=== PATIENT | male | born 1965 | race Caucasian/White ===

== ENCOUNTER 2017-10-22 07:03 | Emergency (ER) | payer OTHER ==
[~2017-10-22 07:03] MED LIST: AMOX-559 PO; AZIT-18 PO; BENZ100C4 PO; IBUP600T22 PO; MULT-1335 PO; OMEG10007 PO; OXYC-373 PO; PRED20TA6 PO; SILV20CR2 TP
[2017-10-22] MEDS ORDERED: PROP10TA58 PO (07:11)
--- NOTE | 2017-10-22 07:27 | ER Report ---
History and Physical Time Seen By MD: 07:25 Hx. of Stated Complaint: CHEST PAIN FOR 10-15 MINUTES. HAD JUST ARRIVED TO WORK. FEELS DISORIENTED HPI/ROS CHIEF COMPLAINT: Chest pain HISTORY OF PRESENT ILLNESS: 52-year-old male presenting with chest pain with acute onset at approximately 645 this morning while typing at a computer. Patient describes a sharp stabbing pain midsternal distribution without radiation. Patient denies exacerbation of pain with deep inspiration or prior history of DVT or pulmonary embolisms. Patient does have a history of hyperlipidemia, hypertension but denies family history of cardiac problems. Patient denies fevers, chills, nausea, vomiting, dysuria, headaches, blurred vision. Patient is hemodynamically stable at time of evaluation. Initial onset of pain was approximately 8 out of 10 but has since subsided. Patient also complains of significant life stressors and moderate alcohol intake on a nightly basis. CHIEF COMPLAINT: Chest pain REVIEW OF SYSTEMS: Constitutional: [No fever, no chills.] Eyes: [No discharge.] ENT: [No sore throat.] Cardiovascular: [No chest pain, no palpitations.] Respiratory: [No cough, no shortness of breath.] Gastrointestinal: [No abdominal pain, no vomiting.] Genitourinary: [No hematuria.] Musculoskeletal: [No back pain.] Skin: [No rashes.] Neurological: [No headache.] Allergies: Coded Allergies: No Known Drug Allergies (Unverified , 10/22/17) Home Meds Reported Medications Propranolol Hcl (PROPRANOLOL HCL) 10 Mg Tablet, 10 MG PO PRN 10/22/17 Discontinued Reported Medications Benkelman-3/Dha/Epa/Fish Oil (Fish Oil 1,000 mg Softgel) 1,000 Mg (120 Mg-180 Mg) Capsule, 2 CAP PO BID 10/29/16 Multivitamin With Minerals (MULTIPLE VITAMIN) 1 Each Tablet, 1 EACH PO DAILY, TAB 10/29/16 Discontinued Scripts Azithromycin 250 Mg Tab (AZITHROMYCIN 250 MG TAB) 250 Mg Tablet, 1 TAB PO QDAY, #6 TAB Take 2 tabs today and then 1 tab a day until gone. Prov:ARTURO GRESHAM PA-C 11/06/16 Prednisone (PREDNISONE) 20 Mg Tablet, 20 MG PO BID for 5 Days, #10 TAB Prov:ARTURO GRESHAM PA-C 11/06/16 Benzonatate 100 Mg Cap (TESSALON PERLE 100 MG CAP) 100 Mg Capsule, 100 MG PO TID , #15 CAP 0 Refills Prov:ANGELES CANALES MD 10/29/16 Past Medical/Surgical History Patient has a history significant for right knee surgery, anxiety Reviewed Nurses Notes: Yes Old Medical Records Reviewed: Yes Hx Smoking: Yes Constitutional Vital Sign - Last 24 Hours 10/22/17 10/22/17 10/22/17 10/22/17 07:06 07:07 07:18 07:30 Temp 98.1 Pulse 80 71 Resp 18 16 B/P (MAP) 151/102 (118) 151/102 144/111 (122) Pulse Ox 95 93 O2 Delivery Room Air 10/22/17 10/22/17 10/22/17 10/22/17 07:33 07:38 07:53 07:58 Pulse 66 67 65 Resp 15 19 12 B/P (MAP) 133/91 (105) Pulse Ox 94 93 94 10/22/17 10/22/17 10/22/17 10/22/17 08:06 08:11 08:30 08:56 Pulse ??? 73 Resp 17 B/P (MAP) 116/77 (90) 121/83 (96) 10/22/17 10/22/17 09:00 09:11 Pulse 68 Resp 16 B/P (MAP) 97/79 (85) Physical Exam General Appearance: The patient is alert, has no immediate need for airway protection and no current signs of toxicity. No acute distress, + anxious appearing Eyes: Pupils equal and round no injection. Respiratory: Chest is non tender, lungs are clear to auscultation. Cardiac: regular rate and rhythm No murmurs or rubs Gastrointestinal: Abdomen is soft and non tender, no masses, bowel sounds normal. Musculoskeletal: Neck: Neck is supple and non tender. Extremities have full range of motion and are non tender. Skin: No rashes or lesions. DIFFERENTIAL DIAGNOSIS: After history and physical exam differential diagnosis was considered for chest pain including but not limited to myocardial ischemia, pericarditis pulmonary embolus, chest wall pain, pleural inflammation and pulmonary infectious causes. Medical Decision Making Data Points Result Diagram: 10/22/17 0710 10/22/17 0710 Laboratory Hematology Test 10/22/17 07:10 10/22/17 10:50 Red Blood Count 4.98 M/uL (4.00-5.60) Mean Corpuscular Volume 94.7 fL (80.0-96.0) Mean Corpuscular Hemoglobin 33.0 pg (26.0-33.0) Mean Corpuscular Hemoglobin Concent 34.9 g/dL (32.0-36.0) Red Cell Distribution Width 14.2 % (11.5-14.5) Mean Platelet Volume 8.7 fL (7.2-11.1) Neutrophils (%) (Auto) 61.1 % (39.4-72.5) Lymphocytes (%) (Auto) 28.2 % (17.6-49.6) Monocytes (%) (Auto) 6.3 % (4.1-12.4) Eosinophils (%) (Auto) 3.6 % (0.4-6.7) Basophils (%) (Auto) 0.8 % (0.3-1.4) Nucleated RBC Relative Count (auto) 0.0 /100WBC Neutrophils # (Auto) 2.7 K/uL (2.0-7.4) Lymphocytes # (Auto) 1.3 K/uL (1.3-3.6) Monocytes # (Auto) 0.3 K/uL (0.3-1.0) Eosinophils # (Auto) 0.2 K/uL (0.0-0.5) Basophils # (Auto) 0.0 K/uL (0.0-0.1) Nucleated RBC Absolute Count (auto) 0.00 K/uL Sodium Level 138 mmol/L (137-145) Potassium Level 4.1 mmol/L (3.5-5.0) Chloride Level 103 mmol/L (98-107) Carbon Dioxide Level 24 mmol/L (22-30) Blood Urea Nitrogen 14 mg/dl (9-21) Creatinine 1.00 mg/dl (0.66-1.25) Glomerular Filtration Rate Calc > 60.0 Random Glucose 124 mg/dl (75-110) Calcium Level 9.8 mg/dl (8.4-10.2) Total Bilirubin 0.8 mg/dl (0.2-1.3) Aspartate Amino Transf (AST/SGOT) 37 U/L (0-35) Alanine Aminotransferase (ALT/SGPT) 42 U/L (0-56) Alkaline Phosphatase 71 U/L (0-126) Total Protein 7.6 gm/dl (6.3-8.2) Albumin 4.2 g/dl (3.5-5.0) Troponin I < 0.012 ng/ml Chemistry Test 10/22/17 07:10 10/22/17 10:50 White Blood Count 4.5 k/uL (4.5-11.0) Red Blood Count 4.98 M/uL (4.00-5.60) Hemoglobin 16.4 g/dL (14.0-18.0) Hematocrit 47.1 % (42.0-52.0) Mean Corpuscular Volume 94.7 fL (80.0-96.0) Mean Corpuscular Hemoglobin 33.0 pg (26.0-33.0) Mean Corpuscular Hemoglobin Concent 34.9 g/dL (32.0-36.0) Red Cell Distribution Width 14.2 % (11.5-14.5) Platelet Count 164 K/uL (150-450) Mean Platelet Volume 8.7 fL (7.2-11.1) Neutrophils (%) (Auto) 61.1 % (39.4-72.5) Lymphocytes (%) (Auto) 28.2 % (17.6-49.6) Monocytes (%) (Auto) 6.3 % (4.1-12.4) Eosinophils (%) (Auto) 3.6 % (0.4-6.7) Basophils (%) (Auto) 0.8 % (0.3-1.4) Nucleated RBC Relative Count (auto) 0.0 /100WBC Neutrophils # (Auto) 2.7 K/uL (2.0-7.4) Lymphocytes # (Auto) 1.3 K/uL (1.3-3.6) Monocytes # (Auto) 0.3 K/uL (0.3-1.0) Eosinophils # (Auto) 0.2 K/uL (0.0-0.5) Basophils # (Auto) 0.0 K/uL (0.0-0.1) Nucleated RBC Absolute Count (auto) 0.00 K/uL Glomerular Filtration Rate Calc > 60.0 Calcium Level 9.8 mg/dl (8.4-10.2) Total Bilirubin 0.8 mg/dl (0.2-1.3) Aspartate Amino Transf (AST/SGOT) 37 U/L (0-35) Alanine Aminotransferase (ALT/SGPT) 42 U/L (0-56) Alkaline Phosphatase 71 U/L (0-126) Total Protein 7.6 gm/dl (6.3-8.2) Albumin 4.2 g/dl (3.5-5.0) Troponin I < 0.012 ng/ml EKG/Imaging EKG Interpretation 12 lead EKG: Rhythm: normal sinus rhythm [place]: normal QRS: normal ST segments: normal Normal when compared to prior EKG on 11/06/2016. No acute ST segment abnormalities. Monitor Interpretation: Normal Sinus Rhythm Imaging 2 VIEWS CHEST INDICATION: Chest pain for one day, history of asthma COMPARISON: Examination chest September 2016 FINDINGS: Heart size within normal limits. Lungs are clear without focal infiltrate. There is no pneumothorax or pleural effusion. No acute bony finding IMPRESSION: 1. No acute cardiopulmonary process. ED Course/Re-evaluation ED Course Patient is a 52-year-old male here with acute onset of sharp midsternal pain without radiation which started approximately 645 this morning. Patient denies prior history of chest pain or cardiac issues. Patient reports that the pain is subsided since time of onset and is associated with mild shortness of breath without cough. On examination pain was not reproducible, patient was noted to have a HEART score of 2 placing the patient had a low risk of MACE(0.9-1.7 %). I discussed these findings with the patient who voiced understanding. Since the chest pain started approximately 645 this morning, a repeat cardiac enzyme was ordered at approximately 1045. Patient received a nitroglycerin tablet and aspirin and reported significant relief of symptoms. I discussed with the patient importance of following up with cardiology for possible provocative testing. She voiced understanding and verbalized that he would follow up with cardiology in the next several days. Patient was stable and pain-free at time of discharge in no acute distress. 2nd cardiac enzyme was undetectable. EKG showed no ischemic changes. Chest x-ray showed no acute findings. Re-evaluation Patient was stable at time of reevaluation with improved pain levels post- nitroglycerin administration. Decision to Disposition Date: Oct 22, 2017 Decision to Disposition Time: 11:30 Depart Departure Latest Vital Signs Vital Signs Date Time Temp Pulse Resp B/P (MAP) Pulse Ox O2 Delivery O2 Flow Rate FiO2 10/22/17 09:11 68 16 10/22/17 09:00 97/79 (85) 10/22/17 07:53 94 10/22/17 07:07 98.1 Room Air Impression: Primary Impression: Chest pain Condition: Improved Disposition: HOME OR SELF-CARE Patient Instructions: Chest Pain (DC) Additional Instructions: You were evaluated today for chest pain. Your chest x-ray showed no acute findings. Your cardiac enzymes were undetectable today and your EKG showed no signs of a heart attack. Though your risk level is low for a heart attack today, please return promptly if you develop recurrent chest pain, shortness of breath, fevers, chills, sweating, dizziness. Please follow up with Cardiology in the outpatient setting for further testing as there may be cardiac disease in spite of a negative work up today. ELLIOT TAYLOR DO Oct 22, 2017 07:27
[2017-10-22] MEDS ORDERED: ASPIRIN 81 MG CHEW PO ONE (07:35)
[2017-10-22 07:52] LABS: PLATELET COUNT, AUTOMATED 164 K/uL (150-450)
[2017-10-22] MEDS ORDERED: NITROGLYCERIN 0.4 MG SUBL SL ONE (08:20)
--- NOTE | 2017-10-22 08:41 | RADIOLOGY IMAGING REPORT ---
FACILITY: [facility] - [place] PATIENT NAME: Junaid Herman : 1965 MR: [id number] V: [id number] EXAM DATE: ORDERING PHYSICIAN: ELLIOT TAYLOR TECHNOLOGIST: Location: [facility] [place] Patient: Junaid Herman : 1965 Visit/Account:[id number] Date of Sevice: 10/22/2017 2 VIEWS CHEST INDICATION: Chest pain for one day, history of asthma COMPARISON: Examination chest September 2016 FINDINGS: Heart size within normal limits. Lungs are clear without focal infiltrate. There is no pneumothorax or pleural effusion. No acute bony finding IMPRESSION: 1. No acute cardiopulmonary process. Report Dictated By: Walker Gusman MD at 10/22/2017 8:35 AM Report E-Signed By: Walker Gusman MD at 10/22/2017 8:37 AM WSN:[email or web address]
[2017-10-22 09:00] VITALS: BP 97/79
--- NOTE | 2017-10-22 13:18 | EKG ---
FACILITY: [facility] - [place] PATIENT NAME: SERGIO DANIEL : [id number] MR: [id number] V: [id number] EXAM DATE: ORDERING PHYSICIAN: ARCHANA HORAN TECHNOLOGIST: JAMIL Marlow Reason : CP Blood Pressure : / mmHG Vent. Rate : 068 BPM Atrial Rate : 068 BPM P-R Int : 178 ms QRS Dur : 098 ms QT Int : 368 ms P-R-T Axes : 049 009 035 degrees QTc Int : 391 ms Normal sinus rhythm Low voltage QRS No ST-T abnormalities When compared with ECG of 06-NOV-2016 20:18, No significant change was found Confirmed by ANUSHKA CANALES ([id number]) on 10/22/2017 8:48:31 PM Referred By: ARCHANA HORAN Confirmed By:ANUSHKA CANALES
== END 2017-10-22 11:43 | disposition home or self-care (01) ==
LOC: ER 07:23
DX: R07.89 Other chest pain (principal)
CPT/HCPCS: 36415; 71046; 82040; 82247; 82310; 82374; 82435; 82565; 82947; 84075; 84132; 84155; 84295; 84450; 84460; 84484; 84520; 85025; 93005; 99284

== ENCOUNTER → 2017-10-30 | Outpatient (CLI) | payer OTHER ==
[~2017-10-30] MED LIST changes: +BARIUM SULFATE 176 GM BTL PO ONE; +BARIUM SULFATE 340 GM POWD ONE; +PROP10TA58 PO
--- NOTE | 2017-10-30 16:55 | RADIOLOGY IMAGING REPORT ---
FACILITY: [facility] - [place] PATIENT NAME: Junaid Herman : 1965 MR: [id number] V: [id number] EXAM DATE: ORDERING PHYSICIAN: CORBY CONTRERAS TECHNOLOGIST: Location: [facility] - [place] Patient: Junaid Herman : 1965 Visit/Account:[id number] Date of Sevice: 10/30/2017 Exam type: UPPER GI SERIES W/O AIR History: GERD with chest pain Comparison: None. Findings: Double contrast upper GI series was performed with thick and thin barium. There is a very small hiat al hernia. A moderate amount of gastroesophageal reflux was observed. There is no evidence of esoph ageal narrowing or mucosal erosion. No abnormality of the stomach duodenal bulb or duodenal C-loop w as seen. The fluoroscopy dose area product was 638.2 micro-Smith per meter squared IMPRESSION: 1. Small hiatal hernia with a moderate amount of gastric esophageal reflux although no evidence of e sophageal narrowing or mucosal erosion Report Dictated By: Carolina Tobias MD at 10/30/2017 4:49 PM Report E-Signed By: Carolina Tobias MD at 10/30/2017 4:51 PM WSN:[email or web address]
== END ==
LOC: RAD 13:54
PROVIDERS: ATTEND Family Medicine
DX: K44.9 Diaphragmatic hernia without obstruction or gangrene (principal); K21.9 Gastro-esophageal reflux disease without esophagitis
CPT/HCPCS: 74240